=== PATIENT | male | born 2000 | race American Indian/Alaskan Native ===

== ENCOUNTER 2019-05-11 13:36 | Emergency (ER) | payer SELFPAY ==
--- NOTE | 2019-05-11 15:03 | RAD REPORT ---
EXAM DESCRIPTION: CT - Head C Spine Mpr Wo Con - 05/11/2019 2:14 pm CLINICAL HISTORY: Dizziness and numbness COMPARISON: None. TECHNIQUE: Computed axial tomography of the head and cervical spine was obtained. Sagittal and coronal reconstruction was performed. All CT scans are performed using dose optimization technique as appropriate and may include automated exposure control or mA/KV adjustment according to patient size. FINDINGS: An intracranial bleed is not seen. The ventricles are normal in caliber. An extra-axial fl uid collection is not noted. Mild opacification sphenoid sinus A cervical fracture is not visualized. No dislocation is noted. Prominent scoliosis involves upper thoracic/cervical spine. 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 IMPRESSION: No acute intracranial abnormality is seen. A cervical fracture is not visualized. 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 It is uncertain if this represents a disc herniation or confluence of normal structure s appearing more prominent due to the congenital anomaly. Further evaluation with an enhanced MRI is recommended. This could be performed on a nonemergent basis unless clinical clinical symptoms warrant an emergent exam
--- NOTE | 2019-05-11 15:13 | EDPHYS ---
Physician Documentation [facility] Name: Yuli Wall Age: 19 yrs Sex: Male : 2000 Arrival Date: 05/11/2019 Time: 13:42 Bed 23 Private MD: ED Physician Bobby Cortes HPI: 05/10 15:03 This 19 yrs old Other Male presents to ER via Ambulatory with complaints of Dizziness, rn Penile Problem. 15:03 The patient presents with lightheadedness. Onset: The symptoms/episode began/occurred rn just prior to arrival. Context: occurred. Modifying factors: The symptoms are alleviated by nothing, the symptoms are aggravated by standing up. Severity of symptoms: At their worst the symptoms were mild in the emergency department the symptoms have improved. The patient has not experienced similar symptoms in the past. Reports got lightheaded, no syncope, prior to arrival, and felt like left arm and then right arm tingling, no weakness. Lightheaded improved, as well as tingling. 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 No recent trauma. Also reports small bump on penis for 2 days. No unprotected sex. . Historical: - Allergies: 13:49 No Known Allergies; hb - Home Meds: 13:49 None [Active]; hb - PMHx: 13:49 None; hb - PSHx: 13:49 None; hb - Immunization history:: Adult Immunizations up to date. - Social history:: Smoking status: Patient reports the use of cigarette tobacco products, smokes one-half pack cigarettes per day. - Family history:: not pertinent. - Hospitalizations: : No recent hospitalization is reported. ROS: 15:03 Constitutional: Negative for fever, chills, and weight loss, Eyes: Negative for injury, rn pain, redness, and discharge, Neck: Negative for injury, pain, and swelling, Cardiovascular: Negative for chest pain, palpitations, and edema, Respiratory: Negative for shortness of breath, cough, wheezing, and pleuritic chest pain, Abdomen/GI: Negative for abdominal pain, nausea, vomiting, diarrhea, and constipation, MS/Extremity: Negative for injury and deformity, Skin: Negative for injury, rash, and discoloration, Neuro: Negative for headache, weakness, and seizure. Exam: 15:03 Constitutional: This is a well developed, well nourished patient who is awake, alert, rn and in no acute distress. Ambulatory to room without assistance or distress. Head/Face: Normocephalic, atraumatic. Eyes: + left eye medial deviated (baseline) Skin: Warm, dry. Right shaft of penis with centimeter growth, no fluctuance, no ulceration, no vesicles, non-tender. MS/ Extremity: Pulses equal, no cyanosis. Neurovascular intact. Full, normal range of motion. Equal circumference. Neuro: Awake and alert, GCS 15, oriented to person, place, time, and situation. Cranial nerves II-XII grossly intact. Motor strength 5/5 in all extremities. Sensory grossly intact. Cerebellar exam normal. Normal gait. Vital Signs: 13:45 BP 147 / 92; Pulse 103; Resp 16; Temp 97.9; Pulse Ox 100% on R/A; Weight 68.04 kg; hb Height 5 ft. 6 in. (167.64 cm); Pain 6/10; 15:00 BP 132 / 92; Pulse 95; Resp 17; Pulse Ox 99% on R/A; rr5 13:45 Body Mass Index 24.21 (68.04 kg, 167.64 cm) hb MDM: 13:52 Patient medically screened. rn 15:03 Differential diagnosis: idiopathic dizziness, vertigo, radiculopathy, disc herniation. rn Data reviewed: vital signs, nurses notes, radiologic studies, CT scan, and as a result, I will discharge patient. Counseling: I had a detailed discussion with the patient and/or guardian regarding: the historical points, exam findings, and any diagnostic results supporting the discharge/admit diagnosis, radiology results, the need for outpatient follow up, to return to the emergency department if symptoms worsen or persist or if there are any questions or concerns that arise at home. Special discussion: I discussed with the patient/guardian in detail that at this point there is no indication for admission to the hospital. It is understood, however, that if the symptoms persist or worsen the patient needs to return immediately for re-evaluation. Further emergent ED testing is not indicated at this point in time. I discussed with the patient/guardian in detail the need to arrange with the PCP or specialist further outpatient testing, MRI, Based on the history and exam findings, there is no indication for further emergent testing or inpatient evaluation. I discussed with the patient/guardian the need to see the back specialist for further evaluation of the symptoms. ED course: Recommend heat to penile lesion in case early infection and urology f/u. CT head/cspine shows possible cervical disc herniation and congenital fusion of upper ribs, recommend outpt MRI and spine f/u. . 05/10 14:02 Order name: CT Head C Spine; Complete Time: 15:24 rn Administered Medications: No medications were administered Disposition: 05/11/19 15:12 Discharged to Home. Impression: Paresthesia of skin, Radiculopathy, cervical region. - Condition is Stable. - Discharge Instructions: Cervical Radiculopathy, Paresthesia. - Prescriptions for Medrol (Laz) 4 mg Oral Tablets, Dose Pack - take 1 tablet by ORAL route as directed - follow package instructions; 1 packet. - Medication Reconciliation Form, Thank You Letter, Antibiotic Education, Prescription Opioid Use, Work release form form. - Follow up: Private Physician; When: As needed; Reason: Recheck today's complaints, Re-evaluation by your physician. - Problem is new. - Symptoms have improved. Signatures: Dispatcher [employer] [facility] Bobby Cortes MD MD rn Baxter, Heather, RN RN hb Roque, Raymond, RN RN rr5 Corrections: (The following items were deleted from the chart) 14:06 14:02 Head Brain Wo Cont+CT.RAD.BRZ ordered. [facility] 15:29 15:12 05/11/2019 15:12 Discharged to Home. Impression: Paresthesia of skin; rr5 Radiculopathy, cervical region. Condition is Stable. Forms are Medication Reconciliation Form, Thank You Letter, Antibiotic Education, Prescription Opioid Use. Follow up: Private Physician; When: As needed; Reason: Recheck today's complaints, Re-evaluation by your physician. Problem is new. Symptoms have improved. rn
--- NOTE | 2019-05-11 15:13 | ER ---
Nurse's Notes [facility] Name: Yuli Wall Age: 19 yrs Sex: Male : 2000 Arrival Date: 05/11/2019 Time: 13:42 Bed 23 Private MD: Diagnosis: Paresthesia of skin;Radiculopathy, cervical region Presentation: 05/10 13:45 Chief complaint: Patient states: "I woke up feeling weird, a little dizzy, and my left hb side was tingly, then my right side was tingly. It started after I noticed a bump on my penis." Denies numbness/SOB/fever/cough. Coronavirus screen: Patient denies fever greater than 100.4F, cough, shortness of breath, or difficulty breathing. Proceed with normal triage process. Ebola Screen: No symptoms or risks identified at this time. Initial Sepsis Screen: Does the patient meet any 2 criteria? No. Patient's initial sepsis screen is negative. Does the patient have a suspected source of infection? No. Patient's initial sepsis screen is negative. Risk Assessment: Do you want to hurt yourself or someone else? Patient reports no desire to harm self or others. 13:45 Method Of Arrival: Ambulatory hb 13:45 Acuity: NAHOMI 4 hb Historical: - Allergies: 13:49 No Known Allergies; hb - Home Meds: 13:49 None [Active]; hb - PMHx: 13:49 None; hb - PSHx: 13:49 None; hb - Immunization history:: Adult Immunizations up to date. - Social history:: Smoking status: Patient reports the use of cigarette tobacco products, smokes one-half pack cigarettes per day. - Family history:: not pertinent. - Hospitalizations: : No recent hospitalization is reported. Screenin:06 Abuse screen: Denies threats or abuse. Denies injuries from another. Nutritional rr5 screening: No deficits noted. Tuberculosis screening: No symptoms or risk factors identified. Fall Risk None identified. Total Arzate Fall Scale indicates No Risk (0-24 pts). Assessment: 14:00 General: Appears in no apparent distress. comfortable, Behavior is calm, cooperative, rr5 appropriate for age. Pain: Denies pain. Neuro: Level of Consciousness is awake, alert, obeys commands, Oriented to person, place, time, situation, Appropriate for age Electrical Unit Rebuilder are equal bilaterally Gait is steady, Facial symmetry appears normal, Reports dizziness, since today numbness in right arm and left arm. Cardiovascular: Capillary refill < 3 seconds Patient's skin is warm and dry. Respiratory: Airway is patent Respiratory effort is even, unlabored, Respiratory pattern is regular, symmetrical. GI: mild redness, swelling on the shaft area of the penis. : No signs and/or symptoms were reported regarding the genitourinary system. EENT: Reports blind left eye. Derm: Skin is intact, is healthy with good turgor, Skin temperature is warm. Musculoskeletal: Circulation, motion, and sensation intact. Capillary refill < 3 seconds. 15:25 Reassessment: Patient appears in no apparent distress at this time. Patient is alert, rr5 oriented x 3, equal unlabored respirations, skin warm/dry/pink. discharge instruction given and explained without complaints made. Vital Signs: 13:45 BP 147 / 92; Pulse 103; Resp 16; Temp 97.9; Pulse Ox 100% on R/A; Weight 68.04 kg; hb Height 5 ft. 6 in. (167.64 cm); Pain 6/10; 15:00 BP 132 / 92; Pulse 95; Resp 17; Pulse Ox 99% on R/A; rr5 13:45 Body Mass Index 24.21 (68.04 kg, 167.64 cm) hb ED Course: 13:42 Patient arrived in ED. ag5 13:48 Triage completed. hb 13:49 Arm band placed on. hb 13:51 Dino Correa, RESHMA is Primary Nurse. rr5 13:52 Bobby Cortes MD is Attending Physician. rn 14:06 Patient has correct armband on for positive identification. Bed in low position. Call rr5 light in reach. 14:17 CT Head C Spine In Process Unspecified. EDMS 15:25 No provider procedures requiring assistance completed. Patient did not have IV access rr5 during this emergency room visit. Administered Medications: No medications were administered Outcome: 15:12 Discharge ordered by . rn 15:25 Discharged to home ambulatory. rr5 15:25 Condition: stable 15:25 Discharge instructions given to patient, Instructed on discharge instructions, follow up and referral plans. medication usage, Demonstrated understanding of instructions, follow-up care, medications, Prescriptions given X 1. 15:29 Patient left the ED. rr5 Signatures: Dispatcher [employer] EDBobby Ham MD MD rn Baxter, Heather, RN RN hb Roque, Raymond, RN RN rr5 Ashley Vela [facility]
[2019-05-11 15:35] VITALS: TEMP 97.9
[2019-05-11 15:38] VITALS: BP 132/92; O2SAT 99
== END 2019-05-11 15:29 | disposition home or self-care (01) ==
LOC: ER 13:36
DX: M54.12 Radiculopathy, cervical region (principal); F17.210 Nicotine dependence, cigarettes, uncomplicated
CPT/HCPCS: 70450; 72125; 99283